=== PATIENT | female | born 1965 | race Caucasian/White ===

== ENCOUNTER 2023-07-29 14:04 | Emergency (ER) | payer BC, SELFPAY ==
[2023-07-29 14:09] VITALS: BP 170/78; PULSE 97; RESP 20; O2SAT 98; BMI 19.7
[2023-07-29 14:54] LABS: Basophils Percent Auto 0.5 % (0.2-2.0); Eosinophils Percent Auto 0.3 % (0.9-7.0); Hematocrit 40.7 % (36.0-48.0); Hemoglobin 14.8 g/dL (12.0-16.0); Immature Granulocytes Abs Auto 0.02 10^3/uL (0.00-0.03); Immature Granulocytes Pct Auto 0.3 % (0.0-0.5); Lymphocytes Absolute Auto 1.3 10^3/uL (1.2-3.8); Lymphocytes Percent Auto 20.9 % (20.5-60.0); Mean Corpuscular HGB Conc 36.4 g/dL (29.9-35.2); Mean Corpuscular Hemoglobin 37.2 pg (26.7-34.0); Mean Corpuscular Volume 102.3 fL (81.0-99.0); Mean Platelet Volume 8.5 fL (9.5-13.5); Monocytes Absolute Auto 0.3 10^3/uL (0.3-0.8); Monocytes Percent Auto 5.6 % (1.7-12.0); Neutrophils Absolute Auto 4.4 10^3/uL (1.4-6.5); Neutrophils Percent Auto 72.4 % (43.0-75.0); Platelet Count 209 10^3/uL (150-450); Red Blood Count 3.98 10^6/uL (4.20-5.40); Red Cell Distribution Width 11.7 % (11.0-15.0); White Blood Count 6.1 10^3/uL (4.0-11.0)
--- NOTE | 2023-07-29 14:59 | ED.BACK1 ---
Documented by User: VINICIO Soto 07/29/23 16:39 HPI - Back Pain/Injury General Chief Complaint: Back Pain/Injury Stated Complaint: BACK PAIN Time Seen by Provider: 07/29/23 14:31 Source: patient Mode of arrival: walk-in Limitations: no limitations History of Present Illness HPI Narrative: 57-year-old female past medical history alcohol use daily by drinking strawberry ritas as 24 ounces 2 cans during the week and 3 during the weekend for many years presents for accidental fall last night. She arrives with her union rep as patient does not remember falling last night. She states that she was probably drunk. Her last drink was 20 hours ago. She states that she has had multiple falls within the past couple weeks. Denies cough, neck pain, dizziness, headache, vision changes, abd pain, dysuria, n/v/d, SOB or CP Related Data Home Medications Medication Instructions Recorded Confirmed metoprolol tartrate 25 mg tablet 25 mg PO BID 07/29/23 07/29/23 Allergies Allergy/AdvReac Type Severity Reaction Status Date / Time Penicillins AdvReac Severe RASH Verified 07/29/23 14:13 Review of Systems ROS Status of ROS 10 or more systems reviewed and unremarkable except as noted in history and below Exam Narrative Exam Narrative: General: A&Ox3, no distress, talking in full an complete sentences skin: warm, dry, intact, purple ecchymosis to the right posterior seventh and ninth rib area, no overlying crepitus head: normocephalic, atraumatic eyes: EOMI nose: nares patent neck: supple, trachea midline cardiac: +S1/S1. no murmur respiratory: lungs CTA, non-labored, no wheezing, no retractions abdomen: soft, NT extremities: FROM x 4, strength +5/5 neuro: A&Ox3 psych: appropriate mood and affect, cooperative Constitutional Vital Signs, click to edit/add: Last Vital Signs Pulse 97 H 07/29/23 14:09 Resp 20 07/29/23 14:09 BP 170/78 H 07/29/23 14:09 Pulse Ox 98 07/29/23 14:09 O2 Del Method Room Air 07/29/23 14:09 Course Vital Signs Vital signs: Vital Signs Pulse Rate 97 H 07/29/23 14:09 Respiratory Rate 20 07/29/23 14:09 Blood Pressure 170/78 H 07/29/23 14:09 Pulse Oximetry 98 07/29/23 14:09 Oxygen Delivery Method Room Air 07/29/23 14:09 Pulse Rate 97 H 07/29/23 14:09 Respiratory Rate 20 07/29/23 14:09 Blood Pressure 170/78 H 07/29/23 14:09 Pulse Oximetry 98 07/29/23 14:09 Oxygen Delivery Method Room Air 07/29/23 14:09 MDM - Back Pain/Injury MDM Narrative Medical decision making narrative: program services planner will be contacted as patient is wanting help to stop drinking alcohol. She is given a dose of thiamine. Potassium 3 and is given 40 p.o., magnesium 1.6 and given 400 mg p.o. alk phos 120. Folate 2.5 and is given 1 g p.o. No other significant lab normalities. She is given instructions for facilities for rehab for alcohol and she is to call when she leaves to set this up. She states that she already takes magnesium and potassium and she is instructed to start multivitamin [id number]. F/u with PCP. afebrile, not tachypneic, not tachycardic, tolerating p.o., not hypoxic, non toxic appearing and ambulating at baseline and hemodynamically stable to be d/c. answered all questions. pt in agreement with tx. educated when to return to ER. Lab Data Attestation: I reviewed the patient's lab results. Labs: Lab Results 07/29/23 07/29/23 Range/Units 14:41 14:53 WBC 6.1 (4.0-11.0) 10^3/uL RBC 3.98 L (4.20-5.40) 10^6/uL Hgb 14.8 (12.0-16.0) g/dL Hct 40.7 (36.0-48.0) % MCV 102.3 H (81.0-99.0) fL MCH 37.2 H (26.7-34.0) pg MCHC 36.4 H (29.9-35.2) g/dL RDW 11.7 (11.0-15.0) % Plt Count 209 (150-450) 10^3/uL MPV 8.5 L (9.5-13.5) fL Neut % (Auto) 72.4 (43.0-75.0) % Lymph % (Auto) 20.9 (20.5-60.0) % [place] % (Auto) 5.6 (1.7-12.0) % Eos % (Auto) 0.3 L (0.9-7.0) % Baso % (Auto) 0.5 (0.2-2.0) % Neut # (Auto) 4.4 (1.4-6.5) 10^3/uL Lymph # (Auto) 1.3 (1.2-3.8) 10^3/uL [place]ier # (Auto) 0.3 (0.3-0.8) 10^3/uL Eos # (Auto) 0.0 (0.0-0.7) 10^3/uL Baso # (Auto) 0.0 (0.0-0.1) 10^3/uL Abs Immat Gran (auto) 0.02 (0.00-0.03) 10^3/uL Imm/Tot Granulo (auto) 0.3 (0.0-0.5) % Sodium 141 (136-145) mmol/L Potassium 3.0 L (3.5-5.1) mmol/L Chloride 101 (98-107) mmol/L Carbon Dioxide 27.2 (21.0-32.0) mmol/L Anion Gap 15.8 BUN 6.0 L (7.0-18.0) mg/dL Creatinine 0.78 (0.55-1.02) mg/dL Est GFR ( Amer) >60 (>=60) Est GFR (Non-Af Amer) >60 (>=60) BUN/Creatinine Ratio 7.7 Glucose 96 (74-106) mg/dL Calcium 8.7 (8.5-10.1) mg/dL Magnesium 1.6 L (1.8-2.4) mg/dL Total Bilirubin 0.3 (0.2-1.0) mg/dL AST 54 H (15-37) U/L ALT 29 (14-59) U/L Alkaline Phosphatase 120 H (46-116) U/L Total Protein 7.5 (6.4-8.2) g/dL Albumin 4.3 (3.4-5.0) g/dL Globulin 3.2 g/dL Albumin/Globulin Ratio 1.3 Vitamin B12 277.0 (193.0-986.0) pg/mL Folate 2.50 L (8.60-58.90) ng/mL Urine Color Yellow (YELLOW) Urine Clarity Clear (CLEAR) Urine pH 6.0 (5.0-9.0) Ur Specific [place] 1.020 (1.005-1.025) Urine Protein Negative (NEG/TRACE) mg/dL Urine Glucose (UA) Negative (NEGATIVE) mg/dL Urine Ketones Negative (NEGATIVE) mg/dL Urine Occult Blood Negative (NEGATIVE) Urine Nitrite Negative (NEGATIVE) Urine Bilirubin Negative (NEGATIVE) Urine Urobilinogen 0.2 (0.2-1.0) EU/dL Ur Leukocyte Esterase Negative (NEGATIVE) Urine RBC 0-2 (0-2) #/HPF Urine WBC 0-2 A (NONE SEEN) #/HPF Ur Squamous Epith Cells Few A (NONE/RARE) #/LPF Urine Crystals None seen (None Seen) #/HPF Urine Bacteria Trace A (NONE SEEN) #/HPF Urine Casts None seen (NONE SEEN) #/LPF Urine Mucus None seen (NONE SEEN) Ur Culture Indicated? No Discharge Plan Discharge Chief Complaint: Back Pain/Injury Clinical Impression: Alcohol abuse, Deficiency of folic acid, Hypokalemia, Hypomagnesemia, Accidental fall Patient Disposition: Home, Self-Care Time of Disposition Decision: 16:37 Condition: Good Mode of Transportation: Private Vehicle Prescriptions / Home Meds: No Action metoprolol tartrate 25 mg tablet 25 mg PO BID Instructions: Hypokalemia (ED), Abuse of Alcohol (ED), Hypomagnesemia (ED) Additional Instructions: start taking multivitamin daily for vitamin deficincies Stand Alone Forms: Portal Instructions Referrals: Physician,Non-Staff, [Primary Care Provider] - 1 week Discharge Date/Time: 07/29/23 17:01 Documented by User: Amos Whiting MD 07/29/23 20:28 HPI - Back Pain/Injury General Chief Complaint: Back Pain/Injury Stated Complaint: BACK PAIN Time Seen by Provider: 07/29/23 14:31 Related Data Home Medications Medication Instructions Recorded Confirmed metoprolol tartrate 25 mg tablet 25 mg PO BID 07/29/23 07/29/23 Allergies Allergy/AdvReac Type Severity Reaction Status Date / Time Penicillins AdvReac Severe RASH Verified 07/29/23 14:13 Exam Constitutional Vital Signs, click to edit/add: Last Vital Signs Pulse 97 H 07/29/23 14:09 Resp 20 07/29/23 14:09 BP 170/78 H 07/29/23 14:09 Pulse Ox 98 07/29/23 14:09 O2 Del Method Room Air 07/29/23 14:09 Course Vital Signs Vital signs: Vital Signs Pulse Rate 97 H 07/29/23 14:09 Respiratory Rate 20 07/29/23 14:09 Blood Pressure 170/78 H 07/29/23 14:09 Pulse Oximetry 98 07/29/23 14:09 Oxygen Delivery Method Room Air 07/29/23 14:09 Pulse Rate 97 H 07/29/23 14:09 Respiratory Rate 20 07/29/23 14:09 Blood Pressure 170/78 H 07/29/23 14:09 Pulse Oximetry 98 07/29/23 14:09 Oxygen Delivery Method Room Air 07/29/23 14:09 MDM - Back Pain/Injury MDM Narrative Medical decision making narrative: program services planner will be contacted as patient is wanting help to stop drinking alcohol. She is given a dose of thiamine. Potassium 3 and is given 40 p.o., magnesium 1.6 and given 400 mg p.o. alk phos 120. Folate 2.5 and is given 1 g p.o. No other significant lab normalities. She is given instructions for facilities for rehab for alcohol and she is to call when she leaves to set this up. She states that she already takes magnesium and potassium and she is instructed to start multivitamin [id number]. F/u with PCP. afebrile, not tachypneic, not tachycardic, tolerating p.o., not hypoxic, non toxic appearing and ambulating at baseline and hemodynamically stable to be d/c. answered all questions. pt in agreement with tx. educated when to return to ER. I, Dr Whiting, have reviewed the above progress note and course of action in the ER; agree with the above. I have personally seen and evaluated this patient, gone over history and physical, and discussed disposition and treatment plan with the patient. Patient is not suicidal or homicidal. Patient has a union truck body repairer with her. Patient allowed us to talk about her medical care, results, and disposition with union truck body repairer at bedside. Lab Data Labs: Lab Results 07/29/23 07/29/23 Range/Units 14:41 14:53 WBC 6.1 (4.0-11.0) 10^3/uL RBC 3.98 L (4.20-5.40) 10^6/uL Hgb 14.8 (12.0-16.0) g/dL Hct 40.7 (36.0-48.0) % MCV 102.3 H (81.0-99.0) fL MCH 37.2 H (26.7-34.0) pg MCHC 36.4 H (29.9-35.2) g/dL RDW 11.7 (11.0-15.0) % Plt Count 209 (150-450) 10^3/uL MPV 8.5 L (9.5-13.5) fL Neut % (Auto) 72.4 (43.0-75.0) % Lymph % (Auto) 20.9 (20.5-60.0) % [place]ier % (Auto) 5.6 (1.7-12.0) % Eos % (Auto) 0.3 L (0.9-7.0) % Baso % (Auto) 0.5 (0.2-2.0) % Neut # (Auto) 4.4 (1.4-6.5) 10^3/uL Lymph # (Auto) 1.3 (1.2-3.8) 10^3/uL [place] # (Auto) 0.3 (0.3-0.8) 10^3/uL Eos # (Auto) 0.0 (0.0-0.7) 10^3/uL Baso # (Auto) 0.0 (0.0-0.1) 10^3/uL Abs Immat Gran (auto) 0.02 (0.00-0.03) 10^3/uL Imm/Tot Granulo (auto) 0.3 (0.0-0.5) % Sodium 141 (136-145) mmol/L Potassium 3.0 L (3.5-5.1) mmol/L Chloride 101 (98-107) mmol/L Carbon Dioxide 27.2 (21.0-32.0) mmol/L Anion Gap 15.8 BUN 6.0 L (7.0-18.0) mg/dL Creatinine 0.78 (0.55-1.02) mg/dL Est GFR ( Amer) >60 (>=60) Est GFR (Non-Af Amer) >60 (>=60) BUN/Creatinine Ratio 7.7 Glucose 96 (74-106) mg/dL Calcium 8.7 (8.5-10.1) mg/dL Magnesium 1.6 L (1.8-2.4) mg/dL Total Bilirubin 0.3 (0.2-1.0) mg/dL AST 54 H (15-37) U/L ALT 29 (14-59) U/L Alkaline Phosphatase 120 H (46-116) U/L Total Protein 7.5 (6.4-8.2) g/dL Albumin 4.3 (3.4-5.0) g/dL Globulin 3.2 g/dL Albumin/Globulin Ratio 1.3 Vitamin B12 277.0 (193.0-986.0) pg/mL Folate 2.50 L (8.60-58.90) ng/mL Urine Color Yellow (YELLOW) Urine Clarity Clear (CLEAR) Urine pH 6.0 (5.0-9.0) Ur Specific [place] 1.020 (1.005-1.025) Urine Protein Negative (NEG/TRACE) mg/dL Urine Glucose (UA) Negative (NEGATIVE) mg/dL Urine Ketones Negative (NEGATIVE) mg/dL Urine Occult Blood Negative (NEGATIVE) Urine Nitrite Negative (NEGATIVE) Urine Bilirubin Negative (NEGATIVE) Urine Urobilinogen 0.2 (0.2-1.0) EU/dL Ur Leukocyte Esterase Negative (NEGATIVE) Urine RBC 0-2 (0-2) #/HPF Urine WBC 0-2 A (NONE SEEN) #/HPF Ur Squamous Epith Cells Few A (NONE/RARE) #/LPF Urine Crystals None seen (None Seen) #/HPF Urine Bacteria Trace A (NONE SEEN) #/HPF Urine Casts None seen (NONE SEEN) #/LPF Urine Mucus None seen (NONE SEEN) Ur Culture Indicated? No Discharge Plan Discharge Chief Complaint: Back Pain/Injury Clinical Impression: Alcohol abuse, Deficiency of folic acid, Hypokalemia, Hypomagnesemia, Accidental fall Patient Disposition: Home, Self-Care Time of Disposition Decision: 16:37 Condition: Good Mode of Transportation: Private Vehicle Prescriptions / Home Meds: No Action metoprolol tartrate 25 mg tablet 25 mg PO BID Instructions: Hypokalemia (ED), Abuse of Alcohol (ED), Hypomagnesemia (ED) Additional Instructions: start taking multivitamin daily for vitamin deficincies Stand Alone Forms: Portal Instructions Referrals: Physician,Non-Staff, MD [Primary Care Provider] - 1 week Discharge Date/Time: 07/29/23 17:01
[2023-07-29 15:00] LABS: Bilirubin Urine NEGATIVE (NEGATIVE); Blood Urine NEGATIVE (NEGATIVE); Clarity Urine CLEAR (CLEAR); Color Urine YELLOW (YELLOW); Glucose Urine UA NEGATIVE (NEGATIVE); Ketones Urine NEGATIVE (NEGATIVE); Leukocyte Esterase Urine NEGATIVE (NEGATIVE); Nitrite Urine NEGATIVE (NEGATIVE); Protein Urine NEGATIVE (NEG/TRACE); Urobilinogen Urine 0.2 EU/dL (0.2-1.0)
[2023-07-29] MEDS: THIAMINE MONONITRATE (VIT B1) 100 MG TABLET PO (15:00)
[2023-07-29 15:08] LABS: Alanine Aminotransferase 29 U/L (14-59); Albumin Globulin Ratio 1.3; Albumin Level 4.3 g/dL (3.4-5.0); Alkaline Phosphatase 120 U/L (46-116); Anion Gap 15.8; Aspartate Amino Transferase 54 U/L (15-37); BUN Creatinine Ratio 7.7; Bilirubin Total 0.3 mg/dL (0.2-1.0); Calcium 8.7 mg/dL (8.5-10.1); Carbon Dioxide 27.2 mmol/L (21.0-32.0); Chloride 101 mmol/L (98-107); Estimated GFR (African America >60 (>=60); Estimated GFR (Non-African Ame >60 (>=60); Globulin 3.2 g/dL; Glucose 96 mg/dL (74-106); Magnesium 1.6 mg/dL (1.8-2.4); Sodium 141 mmol/L (136-145); Total Protein 7.5 g/dL (6.4-8.2)
[2023-07-29 15:26] LABS: Bacteria Urine TRACE #/HPF (NONE SEEN); Cast Seen? NONE SEEN #/LPF (NONE SEEN); Crystals Seen? None Seen #/HPF (None Seen); Mucus Urine NONE SEEN (NONE SEEN); RBC Urine 0-2 #/HPF (0-2); Squamous Epithelial Cell Urine FEW #/LPF (NONE/RARE); Urine Culture Indicated NO; WBC Urine 0-2 #/HPF (NONE SEEN)
--- NOTE | 2023-07-29 15:28 | CT_ITS ---
The [address] [address] Patient Name: CHERYL ABARCA MRN: [id number] date: 1965 Sex: F Assigned Patient Location: ER Current Patient Location: ER Accession/Order Number: [id number] Exam Date: 07/29/2023 15:16 Report Date: 07/29/2023 16:01 At the request of: JUANY NICK Procedure: CT chest wo con EXAM: CT chest wo con HISTORY: fall COMPARISON: None. TECHNIQUE: Unenhanced helical acquisition obtained through the chest. FINDINGS: No evidence of mediastinal hematoma. No evidence of pneumothorax, hemothorax or pulmonary contusion. No fractures are identified. Mild-moderate coronary arterial calcifications.. CT/CT chest wo con IMPRESSION: 1. No acute posttraumatic change identified within the chest. No acute cardiopulmonary disease. 2. Mild-moderate coronary arterial calcifications. Electronically authenticated by: ASHWINI MCKAY Date: 07/29/2023 16:01
--- NOTE | 2023-07-29 15:28 | CT_ITS ---
The [address] [address] Patient Name: CHERYL ABARCA MRN: [id number] date: 1965 Sex: F Assigned Patient Location: ER Current Patient Location: ER Accession/Order Number: [id number] Exam Date: 07/29/2023 15:16 Report Date: 07/29/2023 15:53 At the request of: JUANY NICK Procedure: CT head/brain wo con CT head/brain wo con, 07/29/2023 3:16 PM EDT INDICATION: Fall COMPARISON: None. TECHNIQUE: Axial CT images of the brain from skull base to vertex, including portions of the face and sinuses, were obtained without contrast. Multiplanar reformatted images were generated and reviewed as needed. FINDINGS: No intracranial mass, hydrocephalus, midline shift or acute hemorrhage. No extra-axial collection. Goldman-white matter differentiation is preserved. The paranasal sinuses and mastoid air cells are clear. Orbits are within normal limits. No acute skull fracture. CT/CT head/brain wo con IMPRESSION: No acute intracranial abnormality. Electronically authenticated by: MARICRUZ VILA Date: 07/29/2023 15:53
--- NOTE | 2023-07-29 15:28 | CT_ITS ---
The [place] [id number] Patient Name: CHERYL ABARCA MRN: [id number] date: 1965 Sex: F Assigned Patient Location: ER Current Patient Location: ER Accession/Order Number: [id number] Exam Date: 07/29/2023 15:16 Report Date: 07/29/2023 15:59 At the request of: JUANY NICK Procedure: CT lumbar spine wo con EXAM: CT lumbar spine wo con HISTORY: fall COMPARISON: None. TECHNIQUE: Axial CT images were obtained of the lumbar spine without intravenous contrast. Multiplanar reconstructions were performed. FINDINGS: No acute fracture or malalignment. No significant degenerative changes present. Unremarkable appearance of the paraspinal soft tissues. 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 There are moderate atherosclerotic calcifications in the abdominal aorta. CT/CT lumbar spine wo con IMPRESSION: 1. No acute abnormality. Electronically authenticated by: NATIVIDAD TY Date: 07/29/2023 15:59
[2023-07-29] MEDS: MAGNESIUM OXIDE 400 MG TABLET PO (15:30)
[2023-07-29] MEDS: POTASSIUM CHLORIDE 10 MEQ ER TABLET 40 MEQ PO (15:31)
[2023-07-29] MEDS: FOLIC ACID 1 MG TABLET PO (15:48)
--- NOTE | 2023-07-29 16:08 | SWNOTE1 ---
SW spoke with pt and her union rep/friend in room. SW provided pt with several resources for AA meetings and inpt/outpt counseling for alcohol. Pt does voice she is ready to quit. Pt does not want to go to inpt rehab and she does want to keep working. Pt and union rep appreciative of resources. Union rep has heard of [facility] and recommends them as well.
== END 2023-07-29 17:01 | disposition home or self-care (01) ==
PROVIDERS: Physician Assistant; Emergency Provider Emergency Medicine
DX: E87.6 Hypokalemia (principal); E83.42 Hypomagnesemia; F10.10 Alcohol abuse, uncomplicated; E53.8 Deficiency of other specified B group vitamins; Z91.81 History of falling
CPT/HCPCS: 36415; 70450; 71250; 72131; 80053; 81001; 82607; 82746; 83735; 85025; 99284